=== PATIENT | male | born 2000 | race Caucasian/White ===

== ENCOUNTER 2023-06-17 08:38 | Emergency (ER) | payer OTHER, SELFPAY ==
[2023-06-17] MEDS ORDERED: Proparacaine 0.5% Opth 15 ML BOT ONE (09:05)
[2023-06-17] MEDS ORDERED: Fluorescein Opthalmic Strip ONE (09:06)
[2023-06-17] MEDS ORDERED: Tetracaine 0.5% PF 4 ML BOT ONE (09:08)
[2023-06-17] MEDS ORDERED: Boostrix 0.5 ML (Tdap) VIAL (>/=7 yrs of age) ONE (09:42)
== END 2023-06-17 09:52 | disposition home or self-care (01) ==
LOC: MADERS 08:38
DX: H20.9 Unspecified iridocyclitis (principal)
CPT/HCPCS: 90471; 90715